=== PATIENT | male | born 1955 | race Caucasian/White ===

== ENCOUNTER 2021-05-24 14:57 | Emergency (ER) | payer MEDICAID ==
[~2021-05-24] VITALS: Ht 167.6 cm; Wt 81.6 kg
[2021-05-24 15:46] VITALS: BP 159/108
--- NOTE | 2021-05-24 15:52 | NUR ---
PT AMB TO BED 6
[2021-05-24] MEDS ORDERED: LIDOCAINE MPF 1% 10 MG/ML VIAL INJ ONE (16:10)
[2021-05-24] MEDS ORDERED: HYDROcodone/APAP 5/325 MG 1 TAB TAB PO ONE (16:10)
[2021-05-24] MEDS ORDERED: CEPH-588 PO (16:39)
[2021-05-24] MEDS ORDERED: SULF-59 PO (16:39)
[2021-05-24] MEDS ORDERED: NAPR-54 PO (16:39)
--- NOTE | 2021-05-24 16:50 | NUR ---
pt c/p abscess to left arm, PA performed I and D.pt verbalizes dc intructions. no acute distress noted.stable on dc.
== END 2021-05-24 16:50 | disposition home or self-care (01) ==
LOC: MED 14:57
DX: L02.414 Cutaneous abscess of left upper limb (principal); Z79.899 Other long term (current) drug therapy
CPT/HCPCS: 10060; 99283; J2001